=== PATIENT | female | born 1945 | race African-American/Black ===

== ENCOUNTER 2017-03-01 04:19 | Inpatient (IN) ==
[2017-03-01] MEDS ORDERED: SODIUM CHLORIDE 0.9% 1,850 ML IV ONE (05:25)
[2017-03-01] MEDS ORDERED: cefTRIAXone 1,000 MG in SODIUM CHLORIDE 0.9% 100 ML IV STA (05:26)
[2017-03-01] MEDS ORDERED: AZITHROMYCIN INJ 500 MG in SODIUM CHLORIDE 0.9% 250 ML IV STA (05:26)
[2017-03-01] MEDS ORDERED: AZITHROMYCIN 500 MG VIAL IV ONE ×2 (05:48→05:52)
[2017-03-01] MEDS ORDERED: SODIUM CHLORIDE 0.9% 100 ML IV ONE (05:49)
[2017-03-01] MEDS ORDERED: cefTRIAXone 1,000 MG VIAL ONE (05:49)
[2017-03-01 05:52] LABS: Basophils % 0.1 % (0.0-0.8); Eosinophils # 0.1 10*3/uL (0.0-0.87); Hematocrit 23.2 VOL% (35.7-47.0); Hemoglobin 7.4 GM/DL (12.0-16.0); Immature Granulocytes % 1.1 %; Immature Granulocytes Absolute 0.15 #; Lymphocytes # 1.8 10*3/uL (1.4-4.0); Lymphocytes % 13.4 % (21.3-54.2); Mean Corpuscular HGB Conc 31.9 GM/DL (32-36); Mean Corpuscular Hemoglobin 29 PG (27-34); Mean Corpuscular Volume 89.9 FL (87-102); Mean Platelet Volume 10.4 FL (9.6-12.0); Monocytes # 1.2 10*3/uL (0.11-0.8); Monocytes % 8.8 % (1.7-12.7); NRBC # 0.16 10*3/uL; Neutrophils # 10.2 10*3/uL (1.4-7.4); Neutrophils % 75.6 % (38.7-73.9); Platelet Count 412 T/CUMM (130-400); Red Blood Count 2.58 MC/CUMM (3.8-5.5); Red Cell Distribution Width 21.5 % (9.3-17.3); White Blood Count 13.5 T/CUMM (4-12)
[2017-03-01 06:16] LABS: Alanine Aminotransferase 66 U/L (13-56); Alkaline Phosphatase 141 U/L (45-117); Aspartate Amino Transferase 84 U/L (0-37); Bilirubin,Total < 0.39 MG/DL (0.2-1.0); Blood Urea Nitrogen 139 MG/DL (7-18); Glucose 96 MG/DL (74-106); Osmolality,Calculated 332.7 MOS/KG (273-304); Potassium 4.8 MMOL/L (3.5-5.1); Sodium 145 MMOL/L (136-145); Total Protein 6.5 G/DL (6.4-8.3)
[2017-03-01 06:17] LABS: Troponin I Only 0.072 NG/ML (0.00-0.045)
[2017-03-01] MEDS ORDERED: MORPHINE 2 MG/1 ML SYRINGE IV STA (06:22)
[2017-03-01] MEDS ORDERED: ONDANSETRON 4 MG/2 ML VIAL IV STA (06:22)
[2017-03-01] MEDS ORDERED: ONDANSETRON 4 MG/2 ML VIAL ONE (06:24)
[2017-03-01] MEDS ORDERED: MORPHINE 2 MG/1 ML SYRINGE ONE (06:25)
[2017-03-01] MEDS ORDERED: ALBUTEROL 2.5 MG/3 ML NEB RESP TX PRN (09:45)
[2017-03-01] MEDS ORDERED: DOCUSATE SODIUM 100 MG CAPSULE PO PRN (09:45)
[2017-03-01] MEDS ORDERED: ONDANSETRON 4 MG/2 ML VIAL IV PRN (09:45)
[2017-03-01] MEDS ORDERED: POLYETHYLENE GLYCOL POWDER 17 GM PACK PO PRN (09:45)
[2017-03-01] MEDS ORDERED: FUROSEMIDE 40 MG/4 ML VIAL IV SCH (10:00)
[2017-03-01 11:03] LABS: Amorphous Crystals,Urine Occasional /HPF (Few); Apearance,Urine CLEAR (Clear); Bacteria,Urine Occasional /HPF (Few); Bilirubin,Urine Negative (Negative); Blood, Urine Negative (Negative); Glucose,Urine (UA) Negative (Negative); Ketones,Urine Negative (Negative); Mucus,Urine Occasional /LPF (Occasional); Nitrite,Urine Negative (Negative); Protein,Urine >=500 MG/DL; RBC,Urine 1 /HPF (0-4); Squamous Epithelial Cell,Urine Occasional /HPF (0-10); Urine Color Straw (Yellow); Urine Specific Gravity 1.008 (1.001-1.035); Urine Urobilinogen < 2.0 EU/DL (0.2-1.0); WBC,Urine 1 /HPF (0-6)
[2017-03-01] MEDS: CARVEDILOL 25 MG TABLET PO SCH ×2 (11:07→20:20)
[2017-03-01] MEDS: PANTOPRAZOLE 40 MG TABLET PO SCH (11:07)
[2017-03-01] MEDS: hydrALAZINE 25 MG TABLET PO SCH ×2 (11:07→20:20)
[2017-03-01] MEDS: amLODIPine 10 MG TABLET PO SCH (11:07)
[2017-03-01] MEDS: ACETAMINOPHEN 325 MG TABLET PO PRN ×2 (11:13→19:43)
[2017-03-01 12:28] LABS: Folate 8.9 NG/ML (5.4-24.0); Vitamin B12 1312 PG/ML (211-911)
[2017-03-01 12:44] LABS: Basophils % 0.1 % (0.0-0.8); Eosinophils # 0.2 10*3/uL (0.0-0.87); Eosinophils % 1.3 % (0.00-10.9); Hematocrit 22.2 VOL% (35.7-47.0); Immature Granulocytes % 1.2 %; Immature Granulocytes Absolute 0.15 #; Lymphocytes # 1.5 10*3/uL (1.4-4.0); Lymphocytes % 12.5 % (21.3-54.2); Mean Corpuscular HGB Conc 31.5 GM/DL (32-36); Mean Corpuscular Hemoglobin 29 PG (27-34); Mean Corpuscular Volume 92.9 FL (87-102); Monocytes # 1.3 10*3/uL (0.11-0.8); Monocytes % 10.7 % (1.7-12.7); NRBC # 0.11 10*3/uL; Neutrophils # 9.1 10*3/uL (1.4-7.4); Neutrophils % 74.2 % (38.7-73.9); Platelet Count 332 T/CUMM (130-400); Red Blood Count 2.39 MC/CUMM (3.8-5.5); Red Cell Distribution Width 21.1 % (9.3-17.3); White Blood Count 12.3 T/CUMM (4-12)
[2017-03-01 13:22] LABS: Troponin I Only 0.063 NG/ML (0.00-0.045)
[2017-03-01] MEDS ORDERED: SODIUM CHLORIDE 0.9% 1,000 ML IV PRN (14:41)
[2017-03-01] MEDS: SODIUM BICARB INJ 100 MEQ in SODIUM CHLORIDE 0.45% 900 ML IV SCH (14:56)
[2017-03-01 15:30] LABS: Sedimentation Rate-Westergren 91 MM/HR (0-30)
[2017-03-01 19:21] LABS: Troponin I Only 0.049 NG/ML (0.00-0.045)
[2017-03-01] MEDS: ATORVASTATIN 40 MG TABLET PO SCH (20:20)
[2017-03-01] MEDS: BUDESONIDE/FORMOTEROL 160-4.5 INHALER 6 GM INH SCH (20:20)
[2017-03-02] MEDS: LEVOTHYROXINE 150 MCG TABLET PO SCH (06:23)
[2017-03-02 08:11] LABS: Osmolality,Calculated 327.6 MOS/KG (273-304); Potassium 4.8 MMOL/L (3.5-5.1)
[2017-03-02 08:12] LABS: Risk Ratio 3.22; Thyroid Stimulating Hormone 9.49 uIU/ml (0.358-3.74); VLDL CHOLESTEROL 40.2 MG/DL
[2017-03-02] MEDS: hydrALAZINE 25 MG TABLET PO SCH ×2 (08:36→20:16)
[2017-03-02] MEDS: amLODIPine 10 MG TABLET PO SCH (08:36)
[2017-03-02] MEDS: CARVEDILOL 25 MG TABLET PO SCH ×2 (08:36→20:16)
[2017-03-02] MEDS: PANTOPRAZOLE 40 MG TABLET PO SCH (08:37)
[2017-03-02] MEDS: CLOPIDOGREL 75 MG TABLET PO SCH (08:37)
[2017-03-02 08:47] LABS: Calcium 5.5 MG/DL (8.5-10.1)
[2017-03-02] MEDS ORDERED: FERROUS SULFATE 325 MG TABLET PO SCH (09:00)
[2017-03-02] MEDS ORDERED: CALCIUM GLUCONATE 2,000 MG in SODIUM CHLORIDE 0.9% 100 ML IV ONE (10:00)
[2017-03-02] MEDS: SODIUM BICARB INJ 100 MEQ in SODIUM CHLORIDE 0.45% 900 ML IV SCH (10:37)
[2017-03-02] MEDS: BUDESONIDE/FORMOTEROL 160-4.5 INHALER 6 GM INH SCH ×2 (10:37→20:27)
[2017-03-02 11:29] LABS: Basophils % 0.1 % (0.0-0.8); Eosinophils # 0.2 10*3/uL (0.0-0.87); Eosinophils % 1.5 % (0.00-10.9); Hematocrit 25.7 VOL% (35.7-47.0); Hemoglobin 8.3 GM/DL (12.0-16.0); Immature Granulocytes % 0.9 %; Immature Granulocytes Absolute 0.12 #; Lymphocytes # 0.9 10*3/uL (1.4-4.0); Lymphocytes % 6.8 % (21.3-54.2); Mean Corpuscular HGB Conc 32.3 GM/DL (32-36); Mean Corpuscular Hemoglobin 29 PG (27-34); Mean Corpuscular Volume 89.9 FL (87-102); Mean Platelet Volume 10.2 FL (9.6-12.0); Monocytes # 1.2 10*3/uL (0.11-0.8); Monocytes % 9.5 % (1.7-12.7); NRBC # 0.07 10*3/uL; Neutrophils # 10.4 10*3/uL (1.4-7.4); Neutrophils % 81.2 % (38.7-73.9); Platelet Count 328 T/CUMM (130-400); Red Blood Count 2.86 MC/CUMM (3.8-5.5); Red Cell Distribution Width 19.8 % (9.3-17.3); White Blood Count 12.8 T/CUMM (4-12)
[2017-03-02] MEDS ORDERED: ERGOCALCIFEROL 50,000 UNIT CAPSULE PO SCH (15:00)
[2017-03-02 15:40] LABS: ABG Base Excess -10.5 MMOL/L (-2.5-2.5); ABG Oxygen Saturation 92.3 % (95-100); ABG PCO2 37.9 MM HG (35-48); ABG PH 7.241 (7.35-7.45); ABG TCO2 15.1 MMOL/L (23-27); Allen Test Positive
[2017-03-02] MEDS: ENOXAPARIN 80 MG/0.8 ML SYRINGE SUBCUT SCH (20:16)
[2017-03-02] MEDS: ATORVASTATIN 40 MG TABLET PO SCH (20:16)
[2017-03-02 20:55] LABS: INR 1.1; PT Patient Result 11.5 SECS; Partial Thromboplastin Time 28.9 SECS (0-40)
[2017-03-03] MEDS: ACETAMINOPHEN 325 MG TABLET PO PRN (05:24)
[2017-03-03] MEDS: LEVOTHYROXINE 150 MCG TABLET PO SCH (06:00)
[2017-03-03 07:11] LABS: Basophils % 0.2 % (0.0-0.8); Eosinophils # 0.1 10*3/uL (0.0-0.87); Eosinophils % 0.7 % (0.00-10.9); Hematocrit 26.9 VOL% (35.7-47.0); Hemoglobin 8.6 GM/DL (12.0-16.0); Immature Granulocytes % 1.2 %; Immature Granulocytes Absolute 0.15 #; Lymphocytes # 0.8 10*3/uL (1.4-4.0); Lymphocytes % 6.3 % (21.3-54.2); Mean Corpuscular Hemoglobin 29 PG (27-34); Mean Corpuscular Volume 90.9 FL (87-102); Mean Platelet Volume 9.9 FL (9.6-12.0); Monocytes # 0.7 10*3/uL (0.11-0.8); Monocytes % 5.8 % (1.7-12.7); NRBC # 0.06 10*3/uL; Neutrophils # 10.7 10*3/uL (1.4-7.4); Neutrophils % 85.8 % (38.7-73.9); Platelet Count 307 T/CUMM (130-400); Red Blood Count 2.96 MC/CUMM (3.8-5.5); Red Cell Distribution Width 19.9 % (9.3-17.3); White Blood Count 12.4 T/CUMM (4-12)
[2017-03-03 07:35] LABS: Hemoglobin A1 (Alkaline) 97.2 % (96.5-98.5); Hemoglobin A2 (Alkaline) 2.8 % (1.5-3.5)
[2017-03-03 07:39] LABS: Magnesium 1.6 MG/DL (1.8-2.4); Phosphorous 7.4 MG/DL (2.5-4.9)
[2017-03-03] MEDS: CLOPIDOGREL 75 MG TABLET PO SCH (08:52)
[2017-03-03] MEDS: ENOXAPARIN 80 MG/0.8 ML SYRINGE SUBCUT SCH ×2 (08:53→20:51)
[2017-03-03] MEDS: hydrALAZINE 25 MG TABLET PO SCH ×2 (09:54→20:50)
[2017-03-03] MEDS: PANTOPRAZOLE 40 MG TABLET PO SCH (09:54)
[2017-03-03] MEDS: CARVEDILOL 25 MG TABLET PO SCH ×2 (09:55→20:50)
[2017-03-03] MEDS: amLODIPine 10 MG TABLET PO SCH (09:55)
[2017-03-03 10:01] LABS: Hepatitis A Ab IgM Quant 0.21 Index; Hepatitis A Ab IgM Result Negative (Negative); Hepatitis B Core IgM Quant 0.15 Index; Hepatitis B Core IgM Result Negative (Negative); Hepatitis B Surface Ag Quant 0.17 Index; Hepatitis B Surface Ag Result Negative (Negative); Hepatitis C Virus Ab Quant 0.09 Index; Hepatitis C Virus Ab Result Negative (Negative)
[2017-03-03] MEDS: BUDESONIDE/FORMOTEROL 160-4.5 INHALER 6 GM INH SCH ×2 (10:14→20:51)
[2017-03-03] MEDS ORDERED: BISACODYL 10 MG SUPP RECTAL ONE ×2 (10:43→18:00)
[2017-03-03] MEDS ORDERED: BUPIVACAINE 0.25% 50 ML VIAL ONE (11:46)
[2017-03-03] MEDS ORDERED: HEPARIN 5,000 UNIT/1 ML VIAL ONE (11:46)
[2017-03-03] MEDS ORDERED: LIDOCAINE 1%/EPI INJ 20 ML VIAL ONE (11:46)
[2017-03-03] MEDS ORDERED: ceFAZolin 1,000 MG VIAL ONE (13:06)
[2017-03-03] MEDS ORDERED: MIDAZOLAM 2 MG/2 ML VIAL ONE (13:30)
[2017-03-03] MEDS ORDERED: IRON SUCROSE 300 MG in SODIUM CHLORIDE 0.9% 100 ML IV ONE (13:35)
[2017-03-03] MEDS: ATORVASTATIN 40 MG TABLET PO SCH (20:50)
[2017-03-03] MEDS: MAGNESIUM OXIDE 400 MG TABLET PO SCH (20:50)
[2017-03-04] MEDS: LEVOTHYROXINE 150 MCG TABLET PO SCH ×2 (05:07→06:17)
[2017-03-04] MEDS: ENOXAPARIN 80 MG/0.8 ML SYRINGE SUBCUT SCH (08:00)
[2017-03-04] MEDS: MAGNESIUM OXIDE 400 MG TABLET PO SCH ×3 (08:06→22:41)
[2017-03-04] MEDS: CLOPIDOGREL 75 MG TABLET PO SCH (08:06)
[2017-03-04] MEDS: PANTOPRAZOLE 40 MG TABLET PO SCH (08:06)
[2017-03-04] MEDS ORDERED: IRON SUCROSE 300 MG in SODIUM CHLORIDE 0.9% 100 ML IV ONE (08:35)
[2017-03-04] MEDS: ACETAMINOPHEN 325 MG TABLET PO PRN (09:42)
[2017-03-04] MEDS: hydrALAZINE 25 MG TABLET PO SCH ×4 (12:23→22:40)
[2017-03-04] MEDS: CARVEDILOL 25 MG TABLET PO SCH ×3 (12:23→22:39)
[2017-03-04] MEDS: amLODIPine 10 MG TABLET PO SCH (12:23)
[2017-03-04] MEDS: BUDESONIDE/FORMOTEROL 160-4.5 INHALER 6 GM INH SCH ×2 (12:45→22:39)
[2017-03-04] MEDS ORDERED: MAGNESIUM SULF RIDER 2 GM in PREMIX 1 EACH IV PRN (14:46)
[2017-03-04] MEDS ORDERED: MAGNESIUM SULF RIDER 4 GM in PREMIX 1 EACH IV PRN (14:46)
[2017-03-04 18:16] LABS: Apearance,Urine CLEAR (Clear); Bacteria,Urine Occasional /HPF (Few); Bilirubin,Urine Negative (Negative); Blood, Urine Small mg/dL (Negative); Glucose,Urine (UA) 50 mg/dL (Negative); Ketones,Urine 20 mg/dL (Negative); Nitrite,Urine Negative (Negative); Protein,Urine >=500 MG/DL; RBC,Urine 3 /HPF (0-4); Squamous Epithelial Cell,Urine Occasional /HPF (0-10); Urine Color Yellow (Yellow); Urine Specific Gravity 1.008 (1.001-1.035); Urine Urobilinogen < 2.0 EU/DL (0.2-1.0); WBC,Urine 1 /HPF (0-6)
[2017-03-04] MEDS: ATORVASTATIN 40 MG TABLET PO SCH ×2 (22:30→22:41)
[2017-03-04] MEDS: MAGNESIUM SULF RIDER 2 GM in PREMIX 1 EACH IV ONE ×2 (22:33→22:40)
[2017-03-05] MEDS: LEVOTHYROXINE 175 MCG TABLET PO SCH ×2 (05:24→06:58)
[2017-03-05 06:17] LABS: Basophils % 0.2 % (0.0-0.8); Eosinophils # 0.1 10*3/uL (0.0-0.87); Eosinophils % 0.6 % (0.00-10.9); Hematocrit 31.2 VOL% (35.7-47.0); Hemoglobin 10.4 GM/DL (12.0-16.0); Immature Granulocytes % 1.1 %; Immature Granulocytes Absolute 0.12 #; Lymphocytes # 0.8 10*3/uL (1.4-4.0); Lymphocytes % 7.6 % (21.3-54.2); Mean Corpuscular HGB Conc 33.3 GM/DL (32-36); Mean Corpuscular Hemoglobin 29 PG (27-34); Mean Corpuscular Volume 86.7 FL (87-102); Mean Platelet Volume 10.3 FL (9.6-12.0); Monocytes # 1.1 10*3/uL (0.11-0.8); Monocytes % 10.5 % (1.7-12.7); NRBC # 0.16 10*3/uL; Neutrophils # 8.7 10*3/uL (1.4-7.4); Platelet Count 324 T/CUMM (130-400); Red Cell Distribution Width 19.6 % (9.3-17.3); White Blood Count 10.8 T/CUMM (4-12)
[2017-03-05 06:46] LABS: Albumin 2.7 G/DL (3.4-5.0); Bilirubin,Direct 0.18 MG/DL (0.0-0.20); Bilirubin,Indirect 0.6 MG/DL (0.0-1.0); Bilirubin,Total 0.8 MG/DL (0.2-1.0); Calcium 7.4 MG/DL (8.5-10.1); Magnesium 1.8 MG/DL (1.8-2.4); Osmolality,Calculated 287.3 MOS/KG (273-304); Potassium 3.5 MMOL/L (3.5-5.1); Total Protein 6.1 G/DL (6.4-8.3)
[2017-03-05] MEDS ORDERED: TUBERCULIN SKIN TEST 0.1 ML SYRINGE INTRADERM ONE (11:18)
[2017-03-05] MEDS: PANTOPRAZOLE 40 MG TABLET PO SCH (12:44)
[2017-03-05] MEDS: BUDESONIDE/FORMOTEROL 160-4.5 INHALER 6 GM INH SCH ×2 (12:44→20:43)
[2017-03-05] MEDS: CLOPIDOGREL 75 MG TABLET PO SCH (12:44)
[2017-03-05] MEDS: CARVEDILOL 25 MG TABLET PO SCH ×2 (12:44→20:41)
[2017-03-05] MEDS: hydrALAZINE 25 MG TABLET PO SCH ×3 (12:44→20:42)
[2017-03-05] MEDS: MAGNESIUM OXIDE 400 MG TABLET PO SCH (12:44)
[2017-03-05] MEDS: amLODIPine 10 MG TABLET PO SCH (12:44)
[2017-03-05] MEDS: ATORVASTATIN 40 MG TABLET PO SCH (20:41)
[2017-03-05] MEDS: ACETAMINOPHEN 325 MG TABLET PO PRN (20:42)
[2017-03-05] MEDS: ZALEPLON 5 MG CAPSULE PO PRN (20:42)
[2017-03-05] MEDS: ZINC OXIDE PASTE 113 GM TUBE TOP SCH (20:43)
[2017-03-06] MEDS: LEVOTHYROXINE 175 MCG TABLET PO SCH ×2 (05:27→06:14)
[2017-03-06 07:20] LABS: Calcium 7.7 MG/DL (8.5-10.1); Osmolality,Calculated 278.5 MOS/KG (273-304); Potassium 3.5 MMOL/L (3.5-5.1)
[2017-03-06] MEDS: hydrALAZINE 25 MG TABLET PO SCH ×3 (08:37→20:36)
[2017-03-06] MEDS: CLOPIDOGREL 75 MG TABLET PO SCH (08:37)
[2017-03-06] MEDS: CARVEDILOL 25 MG TABLET PO SCH ×2 (08:37→20:36)
[2017-03-06] MEDS: PANTOPRAZOLE 40 MG TABLET PO SCH (08:37)
[2017-03-06] MEDS: amLODIPine 10 MG TABLET PO SCH (08:37)
[2017-03-06] MEDS: ZINC OXIDE PASTE 113 GM TUBE TOP SCH ×2 (08:38→20:43)
[2017-03-06] MEDS: BUDESONIDE/FORMOTEROL 160-4.5 INHALER 6 GM INH SCH ×2 (08:46→20:37)
[2017-03-06] MEDS: ATORVASTATIN 40 MG TABLET PO SCH (20:36)
[2017-03-06] MEDS: ACETAMINOPHEN 325 MG TABLET PO PRN (20:36)
[2017-03-06] MEDS: ZALEPLON 5 MG CAPSULE PO PRN (20:37)
[2017-03-07] MEDS: LEVOTHYROXINE 175 MCG TABLET PO SCH (06:04)
[2017-03-07] MEDS ORDERED: EPOETIN ALFA 10,000 UNIT/1 ML VIAL IV ONE (08:37)
[2017-03-07] MEDS ORDERED: IRON SUCROSE 300 MG in SODIUM CHLORIDE 0.9% 100 ML IV ONE (08:37)
[2017-03-07] MEDS: hydrALAZINE 25 MG TABLET PO SCH (08:41)
[2017-03-07] MEDS: CARVEDILOL 25 MG TABLET PO SCH (08:41)
[2017-03-07] MEDS: CLOPIDOGREL 75 MG TABLET PO SCH (08:41)
[2017-03-07] MEDS: PANTOPRAZOLE 40 MG TABLET PO SCH (08:41)
[2017-03-07] MEDS: ACETAMINOPHEN 325 MG TABLET PO PRN ×2 (08:43→13:56)
[2017-03-07] MEDS: ZINC OXIDE PASTE 113 GM TUBE TOP SCH (08:43)
[2017-03-07] MEDS: BUDESONIDE/FORMOTEROL 160-4.5 INHALER 6 GM INH SCH (08:43)
[2017-03-07] MEDS: amLODIPine 10 MG TABLET PO SCH (08:43)
[2017-03-07 14:33] VITALS: BP 150/72
== END 2017-03-07 15:17 | DRG 673 ==
LOC: N.ED 04:19 → SUATTDRO 07:52 → N.EDINP 07:52 → N.5E 09:44
PROVIDERS: ADMIT Pediatrics; ATTEND Internal Medicine